=== PATIENT | female | born 1965 | race Caucasian/White ===

== ENCOUNTER 2020-04-10 09:13 | Emergency (ER) | payer BC, OTHER ==
[2020-04-10] MEDS ORDERED: Sodium Chloride 0.9% 10 ML Syringe FLUSH PRN (09:49)
[2020-04-10] MEDS ORDERED: methylPREDNISolone Sodium Succinate 125 MG/2 ML SDV IVPUSH ONE (09:50)
[2020-04-10] MEDS ORDERED: Famotidine 20 MG/2 ML SDV IVPUSH ONE (09:50)
--- NOTE | 2020-04-10 10:27 | EDM.PDOC ---
ED HPI GENERAL MEDICAL PROBLEM - General Chief Complaint: Allergic Reaction Stated Complaint: ALLERGIC RX Time Seen by Provider: 04/10/20 09:20 Source of Information: Reports: Patient History Limitations: Reports: No Limitations - History of Present Illness INITIAL COMMENTS - FREE TEXT/NARRATIVE: The patient presents with a possible allergic reaction. The patient woke up with a swollen tongue and lips. When she went to bed she was feeling fine. She said this happened about 3 days ago and she took some benadryl and it went away. She is on lisinopril/hydrochlorothiazide for blood pressure. She has been on that medicine for about 6 months. She has no trouble breathing. She has no fever, chills, cough, congestion, runny nose, chest pain, abdominal pain, nausea or vomiting. Onset: Sudden Duration: Minutes: Location: Reports: Face Improves with: Reports: None Worsens with: Reports: None Associated Symptoms: Reports: No Other Symptoms - Related Data Allergies Allergy/AdvReac Type Severity Reaction Status Date / Time latex Allergy Other Verified 04/10/20 09:22 Home Meds: Home Meds Lisinopril/Hydrochlorothiazide [Lisinopril-HCTZ 10-12.5 MG] 1 tab PO DAILY 04/10/20 [History] Thyroid [Watson Thyroid] 30 mg PO DAILY 04/10/20 [History] predniSONE [Prednisone] 40 mg PO DAILY #10 tablet 04/10/20 [Rx] Past Medical History Cardiovascular History: Reports: Hypertension [place] History: Reports: Endocrine/Metabolic History: Reports: Hypothyroidism - Infectious Disease History Infectious Disease History: Reports: Chicken Pox, Influenza, Measles, Mumps - Past Surgical History HEENT Surgical History: Reports: Oral Surgery Female Surgical History: Reports: Section Social & Family History - Tobacco Use Smoking Status *Q: Never Smoker Second Hand Smoke Exposure: No - Caffeine Use Caffeine Use: Reports: None - Recreational Drug Use Recreational Drug Use: No ED ROS ALLERGIC REACTION - Review of Systems Review Of Systems: See Below Constitutional: Reports: No Symptoms HEENT: Reports: Other (swelling to her tongue and lips) Respiratory: Reports: No Symptoms Cardiovascular: Reports: No Symptoms Endocrine: Reports: No Symptoms GI/Abdominal: Reports: No Symptoms : Reports: No Symptoms Musculoskeletal: Reports: No Symptoms ED EXAM GENERAL NO PERIP PULSE - Physical Exam Exam: See Below Exam Limited By: No Limitations General Appearance: Alert, No Apparent Distress Ears: Normal External Exam Nose: Normal Inspection Throat/Mouth: Other (Slight edema to her tongue and mild edema to both upper and lower lips) Head: Atraumatic, Normocephalic Neck: Normal Inspection Respiratory/Chest: No Respiratory Distress, Lungs Clear, Normal Breath Sounds Cardiovascular: Regular Rate, Rhythm, No Edema, No Murmur GI/Abdominal: Soft, Non-Tender, No Organomegaly, No Mass Neurological: Alert, Oriented, No Motor/Sensory Deficits Skin Exam: No Rash Course - Vital Signs Last Recorded V/S: Last Vital Signs Temp 97.2 F 04/10/20 09:24 Pulse 78 04/10/20 09:24 Resp 13 04/10/20 09:24 BP 142/99 H 04/10/20 09:24 Pulse Ox 100 04/10/20 09:24 - Orders/Labs/Meds Orders: Active Orders 24 hr Category Date Time Status Peripheral IV Care [RC] . DIRECTED Care 04/10/20 09:50 Active Sodium Chloride 0.9% [Saline Flush] Med 04/10/20 09:49 Active 10 ml FLUSH ASDIRECTED PRN Peripheral IV Insertion Adult [OM.PC] Routine Oth 04/10/20 09:49 Ordered Medication Orders Sodium Chloride (Saline Flush) 10 ml FLUSH ASDIRECTED PRN PRN Reason: Keep Vein Open Last Admin: 04/10/20 10:13 Dose: 10 ml Documented by: KARTHIK Meds: Medications Generic Name Dose Route Start Last Admin Trade Name Freq PRN Reason Stop Dose Admin Sodium Chloride 10 ml 04/10/20 09:49 04/10/20 10:13 Saline Flush FLUSH 10 ml ASDIRECTED PRN Administration Keep Vein Open Discontinued Medications Generic Name Dose Route Start Last Admin Trade Name Freq PRN Reason Stop Dose Admin Famotidine 20 mg 04/10/20 09:50 04/10/20 10:13 Pepcid IVPUSH 04/10/20 09:51 20 mg ONETIME ONE Administration Methylprednisolone Sodium Succinate 125 mg 04/10/20 09:50 04/10/20 10:12 Solu-Medrol IVPUSH 04/10/20 09:51 125 mg ONETIME ONE Administration - Re-Assessments/Exams Free Text/Narrative Re-Assessment/Exam: 04/10/20 10:26 I ordered an IV saline lock, solu-medrol 125mg IV, pepcid 20mg IV. She has angioedema from her laina inhibitor lisinopril. I will observe her for awhile here. 04/10/20 11:05 Her lips are feeling better and she is feeling better. I will discharge her home on prednisone, pepcid and benadryl PRN. Departure - Departure Time of Disposition: 11:10 Disposition: Home, Self-Care 01 Condition: Good Clinical Impression: Allergy to lisinopril Angioedema Qualifiers: Encounter type: initial encounter Qualified Code(s): T78.3XXA - Angioneurotic edema, initial encounter - Discharge Information *PRESCRIPTION DRUG MONITORING PROGRAM REVIEWED*: Not Applicable *COPY OF PRESCRIPTION DRUG MONITORING REPORT IN PATIENT LOVE: Not Applicable Prescriptions: predniSONE [Prednisone] 40 mg PO DAILY #10 tablet Referrals: Lesley Moya NP [Primary Care Provider] - 1 Week Forms: ED Department Discharge Additional Instructions: You are allergic to lisinopril which is an LAINA inhibitor. Do not take any medicine in that class. Take prednisone 40mg daily for 5 days. Take pepcid 20mg daily for a week. Take benadryl 50mg every 6 hours as needed for any more swelling. Please return if you are worse. Call Lesley Moya about starting a different medication for your hypertension. Sepsis Event Note (ED) - Evaluation Sepsis Screening Result: No Definite Risk - Focused Exam Vital Signs: Vital Signs Temp Pulse Resp BP Pulse Ox 04/10/20 09:24 97.2 F 78 13 142/99 H 100 - My Orders Last 24 Hours: My Active Orders 04/10/20 09:49 Sodium Chloride 0.9% [Saline Flush] 10 ml FLUSH ASDIRECTED PRN Peripheral IV Insertion Adult [OM.PC] Routine 04/10/20 09:50 Peripheral IV Care [RC] . DIRECTED - Assessment/Plan Last 24 Hours: My Active Orders 04/10/20 09:49 Sodium Chloride 0.9% [Saline Flush] 10 ml FLUSH ASDIRECTED PRN Peripheral IV Insertion Adult [OM.PC] Routine 04/10/20 09:50 Peripheral IV Care [RC] . DIRECTED
== END 2020-04-10 11:30 | disposition home or self-care (01) ==
LOC: JD.ED 09:13
DX: T78.3XXA Angioneurotic edema, initial encounter (principal); T46.4X5A Adverse effect of angiotensin-converting-enzyme inhibitors, initial encounter; I10 Essential (primary) hypertension; E03.9 Hypothyroidism, unspecified; Z91.040 Latex allergy status; Z79.899 Other long term (current) drug therapy
CPT/HCPCS: 96374; 96375; 99284; J2930; J3490; 99283